=== PATIENT | male | born 1960 | race Caucasian/White ===

== ENCOUNTER 2018-07-31 10:43 | Emergency (ER) | payer OTHER ==
[~2018-07-31] VITALS: Ht 170.2 cm; Wt 88.5 kg
[~2018-07-31 10:43] MED LIST: ELIQUIS5 M1 PO; SIMVASTATIN20 M2 PO
--- NOTE | 2018-07-31 11:33 | ED CARDIAC/CP/PALPITATIONS ---
History of Present Illness General Chief Complaint: Palpitations Stated Complaint: HEART RACING/HX OF A FIB Source: patient, old records Exam Limitations: no limitations Vital Signs & Intake/Output Vital Signs & Intake/Output Vital Signs Date Time Temp Pulse Resp B/P B/P Pulse O2 O2 Flow FiO2 Mean Ox Delivery Rate 07/31 1210 69 07/31 1048 97.1 88 20 164/98 98 Room Air Allergies Coded Allergies: No Known Allergies (10/05/17) Reconcile Medications Apixaban (Eliquis) 5 MG TABLET 1 TAB PO BID A.FIB . Simvastatin (Simvastatin*) 20 MG TABLET 1 TAB PO QPM HIGH CHOLESTEROL ( Reported) Triage Note: 57 YEAR OLD MALE HISTORY OF AFIB, STATES THAT HE DOES NOT TAKE THINNERS DAILY, BUT HAS XARELTO FOR WHEN HE FEELS LIKE HE IS IN AFIB, TOOK PRIOR TO COMING TO ER. HR 82-102 AT TRIAGE, DENIES CP/SOB. PT NOTED TO BE VERY ANXIOUS AT THIS T ALEJANDRA Triage Nurses Notes Reviewed? yes HPI: 57 yo male with a history of AF and hyperlipidemia presents today for tachycardia. Patient states he woke up and took the dya off from work, had two cups of coffee, watched the news, smoked a cigarette and went to the gym. During this time he admits that he felt thirsty and could feel his heart rate beating very fast. He avoided cardio at the gym cause he felt off and took it easy. He came home and had his marylu check is blood pressure cause he felt that he was in afib. His blood pressure came back as in the 130s/80s and at which point he took a xarelto from his previous episode, got in the car and drove here. He denies any chest pain, nausea, vomiting, abdominal pain, sob, dyspnea, visual changes, or pain in the extremities. He admits to feeling light headed and headache generalized. He had a episode of Afib last September and was treated for it by his handbag parts cutter and given xarelto and medication for blood pressure. He has not taken any of the meds prescribe because he did not feel the need to take them. Past History Travel History Traveled to [place] past 21 day No Medical History Any Pertinent Medical History? 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 No Review of Systems Review of Systems Constitutional: Reports: no symptoms, see HPI. EENTM: Reports: no symptoms, see HPI. Respiratory: Reports: no symptoms, see HPI. Cardiovascular: Reports: see HPI, palpitations. GI: Reports: no symptoms, see HPI. Genitourinary: Reports: no symptoms, see HPI. Musculoskeletal: Reports: no symptoms, see HPI. Skin: Reports: no symptoms, see HPI. Neurological/Psychological: Reports: see HPI, headache. Hematologic/Endocrine: Reports: see HPI. Immunologic/Allergic: Reports: see HPI. Physical Exam Physical Exam General Appearance: well developed/nourished, no apparent distress, alert, awake , comfortable Head: atraumatic, normal appearance Eyes: Bilateral: normal appearance, PERRL, EOMI. Ears, Nose, Throat: normal pharynx, normal ENT inspection, hearing grossly normal Neck: normal inspection, supple, full range of motion Respiratory: normal breath sounds, chest non-tender, no respiratory distress Cardiovascular: regular rate/rhythm Gastrointestinal: normal bowel sounds, soft, non-tender, no organomegaly Rectal: deferred Back: normal inspection, normal range of motion Extremities: normal inspection, normal capillary refill, normal range of motion, no edema Neurologic/Psych: no motor/sensory deficits, awake, alert, oriented x 3, normal gait, normal mood/affect Skin: intact, normal color Core Measures ACS in differential dx? No CVA/TIA Diagnosis No Sepsis Present: No Sepsis Focused Exam Completed? No Progress Differential Diagnosis: AMI, atrial fibrillation, unstable angina, V-fib/V-Tach Plan of Care: Orders Procedure Date/time Status URINE DRUGS OF ABUSE 07/31 1149 Active THYROID STIMULATING HORMONE 07/31 1149 Active TROPONIN LEVEL 07/31 1149 Active COMPREHENSIVE METABOLIC PANEL 07/31 1149 Active CBC WITHOUT DIFFERENTIAL 07/31 1149 Complete EKG 07/31 1046 Active Laboratory Tests 07/31/18 1215: Anion Gap 10, Estimated GFR > 60, BUN/Creatinine Ratio 21.4, Glucose 92, Calcium 9.5, Total Bilirubin 0.5, AST 34, ALT 33, Alkaline Phosphatase 56, Troponin I Pending, Total Protein 7.6, Albumin 4.5, Globulin 3.1, Albumin/Globulin Ratio 1.5, TSH Pending, CBC w Diff NO MAN DIFF REQ, RBC 4.96, MCV 90.8, MCH 30.6, MCHC 33.7, RDW 13.3, MPV 7.4, Gran % 75.3 H, Lymphocytes % 17.6 L, Monocytes % 6.0, Eosinophils % 0.8, Basophils % 0.3, Absolute Granulocytes 7.1 H, Absolute Lymphocytes 1.7, Absolute Monocytes 0.6, Absolute Eosinophils 0.1, Absolute Basophils 0 Patient spontaneously converted to sinus rhythm after 10 minutes in the ER. He is currently asymptomatic. He took his Xarelto this morning. Will discharge home, continue Metoprolol and Xarelto and follow up with his handbag parts cutter on Thursday. Initial ED EKG: AFIB Departure Departure Disposition: HOME OR SELF CARE Condition: Stable Clinical Impression Primary Impression: Paroxysmal atrial fibrillation Secondary Impressions: Lightheaded, Palpitations Referrals: Spenser Ayala DO (PCP/Family) Additional Instructions: Follow up with your handbag parts cutter on Thursday. Continue taking your Metoprolol and Xarelto. Return to ER if you notice palpitations, lightheadedness, chest pain, shortness of breath, or any other new or worsening symptoms. Departure Forms: Customer Survey General Discharge Information Critical Care Note Critical Care Note Critical Care Time: non-applicable
[2018-07-31 12:50] LABS: ABSOLUTE BASOPHIL COUNT 0 /CUMM (0.0-0.2); ABSOLUTE EOSINOPHIL COUNT 0.1 /CUMM (0.0-0.7); ABSOLUTE GRANULOCYTE CT 7.1 /CUMM (1.4-6.5); ABSOLUTE LYMPH COUNT 1.7 /CUMM (1.2-3.4); ABSOLUTE MONOCYTE COUNT 0.6 /CUMM (0.10-0.60); BASOPHIL % 0.3 % (0.0-2.0); EOSINOPHIL % 0.8 % (0-5); GRANULOCYTE % 75.3 % (42.2-75.2); MEAN CORPUSCULAR HGB 30.6 PG (27.0-31.0); MEAN CORPUSCULAR HGB CONC 33.7 G/DL (33.0-37.0); MEAN CORPUSCULAR VOLUME 90.8 FL (80.0-94.0); MEAN PLATELET VOLUME 7.4 FL (7.4-10.4); PLATELET COUNT 330 /CUMM (130-400); RBC DISTRIBUTION WIDTH 13.3 % (11.5-14.5); RED BLOOD CELL CT 4.96 /CUMM (4.70-6.10); WHITE BLOOD CELL COUNT 9.4 /CUMM (4.8-10.8)
[2018-07-31 13:38] VITALS: BP 141/76
== END 2018-07-31 13:41 ==
LOC: ERH 10:43
PROVIDERS: Internal Medicine
DX: I48.0 Paroxysmal atrial fibrillation (principal); E78.5 Hyperlipidemia, unspecified; F17.210 Nicotine dependence, cigarettes, uncomplicated
CPT/HCPCS: 80307; 93005; 93010